=== PATIENT | female | born 1955 | race Caucasian/White ===

== ENCOUNTER 2023-02-12 10:20 | Emergency (ER) | payer BC ==
--- OUTSIDE RECORDS SUMMARY | 2023-02-12 10:23 | XMS REPORT | Continuity of Care Document ---
:1955 Author Organization [facility] t Address [address] [place] [address] [address] [place] [address] Care Team Providers Name Role Phone Luigi Lester MD Primary Care Physician JOSÉ MIGUEL_GCBZW_Saira Attending Clinician Unavailable Alonzo Darden MD Attending Clinician Nuno Brenner MD Attending Clinician Ashley Rivas APRN Attending Clinician Luigi Lester MD Attending Clinician Corey Richardson Attending Clinician Unavailable BRENDA LÓPEZ Attending Clinician Unavailable Lab, Adc Fam Pob I Attending Clinician Unavailable Nevaeh Prater Attending Clinician NEVAEH WILSON Attending Clinician Unavailable Martha Arana Attending Clinician MARTHA SPIVEY Attending Clinician Unavailable Doctor Unassigned, [address] Attending Clinician Unavailable JOSÉ MIGUEL_GCBZW_Saira Admitting Clinician Unavailable ALONZO DARDEN Admitting Clinician Unavailable Payers Payer Name Policy Type Policy Number Effective Date Expiration Date Morteza maya 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 3-16 st diffuse diffuse 00:00: Hospita goiter goiter 00 l without without thyrotoxic thyrotoxic crisis or crisis or storm storm Allergies, Adverse Reactions, Alerts Allergy Allergy Status Severity Reaction(s) Onset Inactive Treating Comm ents Source Name Type Date Date Clinician Michelle Gr Active Headache Meth serena ne ty to 3-01 st adverse 00:00: Hospita reaction 00 l s to drug NO KNOWN Drug Active [facility] ALLERGIE Class ity of S [facility] Family History Family Member Diagnosis Comments Start Date Stop Date Source Natural father Colon polyps [facility] Hy[facility] father Ulcerative colitis [facility] Social History Social Habit Start Date Stop Date Quantity Comments Source [facility] Exposure to Yes [facility] SARS-CoV-2 (event) [facility] Alcohol intake 2022-06-05 2022-06-05 Lifetime Zoroastrian 00:00:00 00:00:00 non-drinker Hospital (finding) History of Social 2022-06-05 2022-06-[address] function 00:00:00 00:00:00 Hospital Tobacco use and 2022-05-17 2022-05-17 Smokeless Zoroastrian exposure 00:00:00 00:00:00 tobacco non-user Hospital Sex Ass[birth year] At [birth year] Zoroastrian 00:00:00 00:00:00 Hospital Smoking Status Start Date Stop Date Source Unknown if ever smoked [facility] Never smoked tobacco [facility] Medications Ordered Filled Start Stop Current Ordering Indication Dosage Frequency Signature Comments Components Source Medication Medication Date Date Medication? Clinician (SIG) Name Name DULoxetine Yes 60mg Q.5D Take 1 Metho di (CYMBALTA) 3-[address] 60 MG 14:06: (60 mg Hospita capsule 44 total) by l mouth 2 (two) times a day. folic acid Yes 1mg QD Take 1 Metho di (FOLVITE) 1 3-29 tablet (1 st MG tablet 14:06: mg total) Hos judy 44 by mouth l daily. ARIPiprazol Yes 2mg QD Take 1 Meth serena e (ABILIFY) 3-29 tablet (2 st 2 MG tablet 14:06: mg total) H ospita 44 by mouth l daily. atorvastati 0 Yes 20mg QD Take 1 Meth serena n (LIPITOR) 3-29 tablet (20 st 20 mg 14:06: mg total) Hospita tablet 44 by mouth l daily. Default OP ins pantoprazol 0 Yes 40mg QD Take 1 Meth serena e 3-29 tablet (40 st (PROTONIX) 14:06: mg total) Ho spita 40 MG EC 44 by mouth l tablet daily. losartan 0 Yes 100mg QD Take 1 Method i (COZAAR) 3-[address] 100 MG 14:06: (100 mg Hospita tablet 44 total) by l mouth daily. naltrexone Yes Take by Meth serena HCl 3-[address] (NALTREXONE 14:06: 3.0mg for H ospita ORAL) 44 two weeks l then 4.5mg x 4 weeks doxycycline Yes 50mg Q.5D Take 1 Meth serena (VIBRAMYCIN -[address] ) 50 MG 14:06: (50 mg Hospita capsule 44 total) by l mouth 2 (two) times a day. levothyroxi 2022- No 137ug QD Take 1 Me thodi ne 06-06-[address] (SYNTHROID) 00:00: 04:59 (137 mcg H ospita 137 mcg 00 :00 total) by l tablet mouth daily for 30 days. traMADoL Yes 20495 50mg Q6H Take 1 Method i (ULTRAM) 50 -17 tablet (50 st mg tablet 00:00: mg total) Hos judy 00 by mouth l every 6 (six) hours as needed for moderate pain for up to 10 doses .acute pain. calcium 2022- No 1000mg Q6H Chew 2 Metho di carbonate 06-02 06-[address] (TUMS) 200 00:00: 04:59 (1,000 mg H ospita mg calcium 00 :00 total) l (500 mg) every 6 chewable (six) tablet hours for 90 days. calcitrioL 0 2022- No .25ug Q.5D Take 1 Met hodi (ROCALTROL) 06-02-[address] 0.25 MCG 00:00: 04:59 (0.25 mcg Hos judy capsule 00 :00 total) by l mouth 2 (two) times a day for 14 days. acetaminoph No 1000mg Q8H Take 2 M ethodi en (Tylenol 17 -[address] Extra 00:00: 04:59 (1,000 mg Hospit a Strength) 00 :00 total) by l 500 MG mouth tablet every 8 (eight) hours for 3 days. Following day 3, can use over-the-c ounter acetaminop hen as needed per label instructio ns. No more than 3-4 grams (4080-6547 mg) of acetaminop hen daily. methIMAzole No 10mg Q.5D Take 1 Met hodi (TAPAZOLE) 06-01 tablet (10 st 10 MG 15:26: 00:00 mg total) Hospit a tablet 35 :00 by mouth 2 l (two) times a day. Vital Signs Vital Name Observation Time Observation Value Comments Source Systolic blood 2022-06-14 19:05:00 134 mm[Hg] [facility] pressure Diastolic blood 2022-06-14 19:05:00 70 mm[Hg] [facility] pressure Heart rate 2022-06-14 19:05:00 113 /min [facility] Body temperature 2022-06-14 19:05:00 36.89 Leida [facility] Body height 2022-06-14 19:05:00 177.8 cm [facility] Body weight 2022-06-14 19:05:00 95.709 kg [facility] BMI 2022-06-14 19:05:00 30.28 kg/m2 [facility] Oxygen saturation in 2022-06-14 19:05:00 99 /min [facility] Arterial blood by Pulse oximetry Respiratory rate 2022-06-02 16:20:37 16 /min [facility] Procedures Procedure Date / Time Performing Clinician Source Performed PARATHYROID HORMONE 2022-06-02 09:29:[facility] 2022-06-02 09:29:00 Jean Pierre Baugh spital PARATHYROID HORMONE 2022-06-01 20:50:00 [facility] CALCIUM LEVEL 2022-06-01 20:50:00 [facility] AN ELECTIVE 2022-06-01 18:08:00 [facility] THYROIDECTOMY 2022-06-01 18:01:00 Katalina Alonzo [facility] spital SURGICAL PATHOLOGY 2022-06-01 13:10:00 KatalinaAlonzo jimenez [facility] REQUEST CBC WITH PLATELET AND 2022-05-17 19:35:00 Ashley Rivas [facility] DIFFERENTIAL COMPREHENSIVE METABOLIC 2022-05-17 19:35:00 Ashley Rivas [facility] PANEL HEMOGLOBIN A1C 2022-05-17 19:35:00 Evelyn[facility] ESTIMATED GFR 2022-05-17 19:35:00 Evelyn, Linden Toya [facility] ECG PRE/POST OP 2022-05-17 19:23:51 Evelyn, [facility] Plan of Care Planned Activity Planned Date Details Comments Source Future Scheduled 2023-01-10 Screening for [facility] Test 03:19:15 malignant neoplasm of colon (procedure) [code = 099128180] Future Scheduled 2023-01-10 Screening for [facility] Test 03:19:15 malignant neoplasm of colon (procedure) [code = 872784109] Future Scheduled 2023-01-10 Screening for [facility] Test 03:19:15 malignant neoplasm of colon (procedure) [code = 711708565] Future Scheduled 2023-01-[address] [facility] Test 03:19:15 (procedure) [code = 416468822] Future Scheduled 2023-01-10 BREAST CANCER [facility] Test 03:19:15 SCREENING [code = BREAST CANCER SCREENING] Future Scheduled 2023-01-10 Screening for [facility] Test 03:19:15 malignant neoplasm of colon (procedure) [code = 782770792] Future Scheduled 2023-01-10 Screening for [facility] Test 03:19:15 malignant neoplasm of colon (procedure) [code = 745549998] Future Scheduled 2023-01-10 SHINGLES VACCINES (1 Met [facility] Test 03:19:15 of 2) [code = SHINGLES VACCINES (1 of 2)] Future Scheduled 2023-01-10 65+ P[facility]UMOCOCCAL [facility] Test 03:19:15 VACCINE (2 - PCV) [code = 65+ PNEUMOCOCCAL VACCINE (2 - PCV)] Future Scheduled 2023-01-10 COVID-19 VACCINE (4 - [facility] Test 03:19:15 season) [code = COVID-19 VACCINE (4 - season)] Future Scheduled 2023-01-10 INFLUENZA VACCINE (#1) [facility] Test 03:19:15 [code = INFLUENZA VACCINE (#1)] Encounters Start End Encounter Admission Attending Care Care Encounter Source Date/Time Date/Time Type Type Clinicians Facility Department ID 2023-01-14 2023-01-14 Outpatient GC_GCBZW_Ka PRIV PRIV [id number] [facility] 00:00:00 00:00:00 ditracia_S [id number] Medic al 2022-06-14 2022-06-14 Office Katalina, 1.2.840.7 [id number] [facility] 14:00:00 15:41:56 Visit Helanderson S [address]37.1.[address] 3.430.2.7 Hospit a .3.945048 l .8 2022-06-14 2022-06-14 [id number] [place] 00:00:00 00:00:[address] HELMI [address] 2022-06-14 2022-06-14 Travel 1.2.840.1 1.2.896.010 [id number] [facility] 00:00:00 00:00:[address] 3.430.2.7 0.2.7.3.698 Ho spita .3.177829 084.8 l .8 2022-06-01 2022-06-02 [facility], 1.2.840.1 [id number] Method[facility] 09:30:00 14:01:00 Encounter Helanderson S [address]0562.1.[address] 3.430.2.7 Hospit a .3.100356 l .8 2022-06-01 2022-06-02 Outpatient KATALINA [facility] [id number] [place] 00:00:00 00:00:00 HELMI [address] 2022-06-01 2022-06-01 Surgery Katalina, 1.2.840.1 [id number] [facility] 14:35:00 18:55:00 Helmi S [address]14.[address] 3.430.2.7 Hospit a .3.917284 l .8 2022-06-01 2022-06-01 Anesthesia Mauricecheryl Nuno Hill 1.2.840.1 [id number] [facility] 13:01:00 15:37:00 Event Evelyn Ashley AnnettePatricia 57152.1.[address] 3.430.2.7 Hospit a .3.645788 l .8 2022-06-01 2022-06-01 Travel 1.2.840.1 1.2.666.165 [id number] [facility] 00:00:00 00:00:[address] 3.430.2.7 0.2.7.3.698 Ho spita .3.990575 084.8 l .8 2022-05-30 2022-05-30 Travel 1.2.840.1 1.2.534.060 [id number] [facility] 00:00:00 00:00:[address] 3.430.2.7 0.2.7.3.698 Ho spita .3.921367 084.8 l .8 2022-05-17 2022-05-17 Pre-Admiss Katalina, 1.2.840.1 [id number] Methodi 13:00:00 14:00:00 ion Helmi S [address]804.1.[address] Testing 3.430.2.7 Hospit a .3.115318 l .8 2022-05-17 2022-05-17 Office Katalina, 1.2.840.9 [id number] Method[facility] 09:30:00 11:03:25 Visit Helmi S [address]2379.1.[address] 3.430.2.7 Hospit a .3.261192 l .8 2022-05-17 2022-05-17 Travel 1.2.840.1 1.2.309.434 [id number] [facility] 00:00:00 00:00:[address] 3.430.2.7 0.2.7.3.698 Ho spita .3.802816 084.8 l .8 2022-05-17 2022-05-17 Outpatient KATALINA, [facility] [id number] [place] 00:00:00 00:00:[address] HELMI [address] 2022-05-17 2022-05-17 Outpatient KATALINA [facility] [id number] [place] 00:00:00 00:00:[address]MI [address] 2022-05-11 2022-05-11 Transcribe Tayler, 1.2.840.1 [id number] Methodi 00:00:00 00:00:00 Orders Luigi 65416.1.[address] 3.430.2.7 Hospit a .3.863445 l .8 2022-05-01 2022-05-01 Telephone Dylan, 1.2.840.2 [id number] Method[facility] 00:00:00 00:00:[address] 3.430.2.7 Hospit a .3.218244 l .8 2020-05-18 2020-05-18 Outpatient Keith LÓPEZ [facility] [id number] Univers 11:40:00 11:40:00 [facility] 2020-05-14 2020-05-14 Outpatient Keith LÓPEZ [facility] [id number] Univers 10:50:00 10:50:00 [facility] 2020-05-04 2020-05-04 Outpatient Keith LÓPEZ [facility] [id number] [facility] 10:50:00 10:50:00 [facility] 2020-04-13 2020-04-13 Outpatient R RENE, [facility] [id number] Univers 10:10:00 10:10:00 BRENDA saez [facility] 2020-03-29 2020-03-29 Laboratory Lab, [facility] Fam Pob I [facility] 1.2. 840.114 [id number] Univers 09:12:25 09:32:25 Only Nevaeh [facility] 350.1.13.10 [facility]y [facility] [place] 4.2.7.2.686 Nura as Professio [phone] [place] [address] Office [address] [facility] 2020-03-29 2020-03-29 Outpatient R SLY [facility] [id number] Univers 09:00:00 09:00:00 NEVAEH saez [facility] 2019-12-03 2019-12-03 Laboratory Lab, [facility] 1.2.840.114 [id number] 16:08:25 16:28:25 Only Fam Pob I Health 350.1.13.10 [place] 4.2.7.2.686 Professio [phone] nal [facility] Office [facility] 2019-12-03 2019-12-03 Laboratory Lab, [facility] Fam Pob I [facility] 1.2. 840.114 [id number] Univers 16:08:25 16:28:25 Only Allyssa Martha [facility] 350.1.13.10 ity [facility] [place] 4.2.7.2.686 Nura as Professio [phone] [place] dical nal [address] [place] [address] Office [address] [facility] 2019-12-03 2019-12-03 Outpatient R ALLYSSA [facility] [id number] Univers 16:00:00 16:00:00 MARTHA saez [facility] 2019-12-02 2019-12-02 Outpatient R SLY [facility] [id number] Univers 14:00:00 14:00:00 NEVAEH saez [facility] 2019-10-20 2019-10-20 Laboratory Lab, [facility] 1.2.840.114 [id number] 15:59:30 16:19:30 Only Fam Pob I Health 350.1.13.10 [place] 4.2.7.2.686 Professio [phone] nal [facility] Office Building [facility] 2019-10-20 2019-10-20 Laboratory Lab, Adc Fam Pob I [facility] 1.2. 840.114 [id number] Univers 15:59:30 16:19:30 Only Nevaeh Wilson 350.1.13.10 [facility]y of [place] 4.2.7.2.686 Nura as Professio [phone] [place] dical [address] Office Building [facility] 2019-10-20 2019-10-20 [facility] [id number] Univers 16:00:00 16:00:00 NEVAEH itcharito [facility] 2019-10-20 2019-10-20 [facility] [id number] Univers 15:40:00 15:40:00 NEVAEH saez [facility] 2019-10-20 2019-10-20 Letter Doctor BEAN 1.2.840.114 [id number] 00:00:00 00:00:00 (Out) Unassigned, CYNDEE 350.1.13.[address] [facility] [id number] [facility] 2019-10-20 2019-10-20 Letter Doctor GENEVA 1.2.840.114 [id number] Univers 00:00:00 00:00:00 (Out) Unassigned, CYNDEE 350.1.13.[address] [facility] 4.2.7.2.686 Nura as [phone] [address] Results Test Description Test Time Test Comments Results Result Comments Source Surgical pathology request 2022-06-08 22:19:29 Test Item Value Reference Range Interpretation Comme nts Case number (test code = [id number]) [id number] Surgical pathology report (test code = See link below for PDF Lab R eport 225) Result status (test code = 5505160) This is Final Report for [id number] [facility]2023-03-16 18:08:00Misa Amaya 06/01/2022 1:28 PMAirway Date/Time: 06/01/2022 1:08 PM Location: OR Performed by: WAITER/WAITRESS TAKE OUT/AAAnesthesiologist: Nuno Brenner MDResident/WAITER/WAITRESS TAKE OUT/AA: Misa AmayaAuthorized by: Nuno Brenner MDUrgency: ElectiveDifficult Airway: No Preoxygenated with 100% O2: Yes C-spine Precautions Maintained Throughout: Yes Mask Ventilation: Easy maskFinal Airway Type: Endotracheal airwayFinal Endotracheal Airway: ETT and NIM tubeCuffed: Yes Technique Used: Direct laryngoscopyDevices/Methods Used in Placement: Intubating styletInsertion Site: OralBlade Type: MillerLaryngoscope Blade/Videolaryngoscope Blade Size: 2ETT Size (mm): 7.0Cuff at minimum occlusion pressure: Yes Measured from: LipsETT to Lips (cm): 21Placement Verified by: CO2 detection Laryngoscopic view: Grade I - full view of glottisRapid Sequence Induction (RSI): No Modified RSI: No Number of Attempts at Approach: 1ECG Pre/Post [id number] 23:00:37 Test Item Value Reference Range Interpretation Comments Ventricular rate (test 85 code = 253) Atrial rate (test code = 85 255) NM interval (test code = 130 266) QRSD interval (test code 86 = 260) QT interval (test code = 368 264) QTC interval (test code 437 = 265) P axis 1 (test code = 56 267) QRS axis 1 (test code = 46 268) T wave axis (test code = 75 270) EKG impression (test Normal sinus code = 273) rhythm-Normal ECG-No previous ECGs available-Electronica lly Signed By Jason Howell MD ([id number]) on 05/17/2022 5:00:32 PM [facility]
[2023-02-12 11:14] LABS: Absolute Lymphocytes (CBC) 2.3 K/uL (0.7-4.9); Hematocrit 27.9 % (36.0-45.0); MCV 93.9 fL (80-100); MPV 8.2 fL (7.6-11.3); Platelets 269 thou/uL (152-406); RBC Red Blood Cell Count 2.97 M/uL (3.86-4.86)
[2023-02-12 11:42] LABS: Albumin 3.3 g/dL (3.4-5.0); Bilirubin Total 0.2 mg/dL (0.2-1.0); Potassium 4.2 mEq/L (3.5-5.1); Protein, Total 8.5 g/dL (6.4-8.2)
[2023-02-12 12:13] LABS: Blood Morphology Comment NOT SEEN (NOT SEEN); Platelet Estimate ADEQ
[2023-02-12] MEDS ORDERED: NA CHLORIDE 0.9% 1,000 ML ONE (12:30)
--- NOTE | 2023-02-12 13:03 | RAD REPORT ---
EXAM DESCRIPTION: CT - Chest For Pe Angio - 02/12/2023 12:18 pm CLINICAL HISTORY: HEMOPTYSIS COMPARISON: Thorax Wo Con dated 11/03/2022 TECHNIQUE: Thin axial CT images of the chest were obtained following administration of 100 mL Isovue 370 IV contrast. Multiplanar reconstructions, and maximum intensity projection reconstructions were generated and reviewed. Exam utilizes a protocol for optimal evaluation of pulmonary arterial tree. All CT scans are performed using dose optimization technique as appropriate and may include automated exposure control or mA/KV adjustment according to patient size. FINDINGS: Right and left pulmonary arteries are prominent in caliber. No emboli or other suspicious finding. No acute or significant aorta findings. No mass or infiltrate in the lung parenchyma. No pleural thickening or pleural effusion. No pneumotho rax. Small hiatal hernia. Central airways are patent without suspicious endobronchial lesions. No abnormal mediastinal or hilar masses or lymphadenopathy seen. No chest wall mass or abnormal axilliary lympha denopathy. IMPRESSION: No evidence of acute central pulmonary emboli. Prominent caliber of the right and left pulmonary arteries, suggesting pulmonary arterial hypertensio n in the appropriate clinical setting. Small hiatal hernia.
--- NOTE | 2023-02-12 13:50 | ER ---
Nurse's Notes [facility] Name: Oh Young Age: 67 yrs Sex: Female : 1955 Arrival Date: 02/12/2023 Time: 10:20 Bed 11 Private MD: Luigi Lester V Diagnosis: Hemoptysis Presentation: 02/12 10:36 Chief complaint: Patient states: "I've been coughing up phlegm that has blood in it for mb9 the past couple days. I feel like i'm wheezing as well." Pt denies SOB/CP. Coronavirus screen: Vaccine status: Patient reports receiving the 2nd dose of the covid vaccine. Ebola Screen: No symptoms or risks identified at this time. Initial Sepsis Screen: Does the patient meet any 2 criteria? No. Patient's initial sepsis screen is negative. Does the patient have a suspected source of infection? No. Patient's initial sepsis screen is negative. Risk Assessment: Do you want to hurt yourself or someone else? Patient reports no desire to harm self or others. Onset of symptoms was February 12, 2023. 10:36 Method Of Arrival: Ambulatory mb9 10:36 Acuity: ALICIA 3 mb9 Triage Assessment: 10:39 General: Appears in no apparent distress. Behavior is calm, cooperative. Pain: Denies mb9 pain. EENT: No deficits noted. Neuro: Palmer Agitation-Sedation Scale (RASS): 0 - Alert and Calm Level of Consciousness is awake, alert, obeys commands, Oriented to person, place, time, situation, Appropriate for age. Cardiovascular: Patient's skin is warm and dry. Respiratory: Reports cough that is. GI: Abdomen is round non-distended. : No signs and/or symptoms were reported regarding the genitourinary system. Derm: Skin is pink, warm \\T\\ dry. Musculoskeletal: Range of motion: intact in all extremities. Historical: - Allergies: 10:38 Zoloft; mb9 - PMHx: 10:38 raynaud's; Depressive disorder; mb9 - PSHx: 10:38 Thyroidectomy; mb9 - Immunization history:: Adult Immunizations up to date. - Social history:: Smoking status: Patient denies any tobacco usage or history of. - Family history:: not pertinent. Screenin:54 [facility] ED Fall Risk Assessment (Adult) History of falling in the last 3 months, me1 including since admission No falls in past 3 months (0 pts) Confusion or Disorientation No (0 pts) Intoxicated or Sedated No (0 pts) Impaired Gait No (0 pts) Mobility Assist Device Used No (0 pt) Altered Elimination No (0 pt) Score/Fall Risk Level 0 - 2 = Low Risk. Abuse screen: Denies threats or abuse. Nutritional screening: No deficits noted. Tuberculosis screening: No symptoms or risk factors identified. Assessment: 12:54 Reassessment: No changes from previously documented assessment. me1 Vital Signs: 10:36 BP 173 / 94; Pulse 90; Resp 18; Temp 98; Pulse Ox 100% ; Weight 117.93 kg; Height 5 ft. mb9 11 in. ; 13:03 BP 171 / 90; Pulse 82; Resp 18; Pulse Ox 99% on R/A; me1 15:55 BP 178 / 87; Pulse 86; Resp 18; Pulse Ox 98% on R/A; me1 10:36 Body Mass Index 36.26 (117.93 kg, 180.34 cm) mb9 ED Course: 10:22 Patient arrived in ED. mr 10:23 Luigi Lester MD is Private Physician. mr 10:28 Raz Li MD is Attending Physician. rt 10:37 Triage completed. mb9 10:39 Arm band placed on. mb9 12:20 CT Chest For PE Angio In Process Unspecified. EDMS 12:24 Cindy Allen, RN is Primary Nurse. me1 12:54 Patient has correct armband on for positive identification. Bed in low position. Call me1 light in reach. Side rails up X 1. Provided Education on: POC. Verbalized understanding. . 12:54 No provider procedures requiring assistance completed. Patient did not have IV access me1 during this emergency room visit. 15:55 IV discontinued, intact, bleeding controlled, No redness/swelling at site. Pressure me1 dressing applied. Administered Medications: 12:25 Drug: NS 0.9% IV 1000 ml IV at 1 bolus Per protocol; 1000 mL bolus Route: IV; Rate: 1 me1 bolus; Site: right antecubital; 14:16 Follow up: Response: No adverse reaction; IV Status: Completed infusion me1 14:16 Drug: AZITHromycin IVPB 500 mg IVPB once over 1 hrs; (mix in 250 mL NS) Route: IVPB; me1 Infused Over: 1 hrs; Site: right forearm; 15:51 Follow up: Response: No adverse reaction; IV Status: Completed infusion me1 14:16 Drug: predniSONE PO 40 mg PO once Route: PO; me1 15:51 Follow up: Response: No adverse reaction me1 Medication: 12:54 VIS not applicable for this client. me1 Outcome: 13:49 Discharge ordered by . rt 15:56 Discharged to home ambulatory, with significant other, me1 15:56 Condition: stable 15:56 Discharge instructions given to patient, family, Instructed on discharge instructions, follow up and referral plans. medication usage, Demonstrated understanding of instructions, follow-up care, medications, Prescriptions given X 3, 15:56 Patient left the ED. me1 Signatures: Dispatcher [employer] EDQueta Lujan, Jacob James mr Leiva, Queta Valdes RN RN mb9 Raz Li MD MD rt Cindy Allen RN RN me1
--- NOTE | 2023-02-12 13:50 | EDPHYS ---
Physician Documentation [facility] Name: Oh Young Age: 67 yrs Sex: Female : 1955 Arrival Date: 02/12/2023 Time: 10:20 Bed 11 Private MD: Luigi Lester V ED Physician Raz Li HPI: 02/12 10:45 This 67 yrs old Female presents to ER via Ambulatory with complaints of Coughing up rt blood. 10:45 Patient presents to the ED with hemoptysis. She states that since about Sunday or rt last week she had a cough, started having hemoptysis on Sunday. Denies any difficulty breathing, reports subjective fever but she has been taking Tylenol. Denies any chest pain or shortness of breath. Denies other acute complaints, symptoms are moderate in severity, no other aggravating or alleviating factors.. Historical: - Allergies: 10:38 Zoloft; mb9 - PMHx: 10:38 raynaud's; Depressive disorder; mb9 - PSHx: 10:38 Thyroidectomy; mb9 - Immunization history:: Adult Immunizations up to date. - Social history:: Smoking status: Patient denies any tobacco usage or history of. - Family history:: not pertinent. ROS: 10:45 Cardiovascular: Negative for chest pain, palpitations, and edema, Abdomen/GI: Negative rt for abdominal pain, nausea, vomiting, diarrhea, and constipation, MS/Extremity: Negative for injury and deformity, Skin: Negative for injury, rash, and discoloration, Neuro: Negative for headache, weakness, numbness, tingling, and seizure, Psych: Negative for depression, anxiety, suicide ideation, homicidal ideation, and hallucinations, 10:45 Constitutional: Positive for Subjective fever, negative for body aches, 10:45 Respiratory: Positive for Hemoptysis, cough, negative for shortness of breath, Exam: 10:45 Constitutional: This is a well developed, well nourished patient who is awake, alert, rt and in no acute distress. Head/Face: Normocephalic, atraumatic. Chest/axilla: Normal chest wall appearance and motion. Nontender with no deformity. No lesions are appreciated. Cardiovascular: Regular rate and rhythm with a normal S1 and S2. No gallops, murmurs, or rubs. Normal PMI, no JVD. No pulse deficits. Respiratory: Lungs have equal breath sounds bilaterally, clear to auscultation and percussion. No rales, rhonchi or wheezes noted. No increased work of breathing, no retractions or nasal flaring. Abdomen/GI: Soft, non-tender, with normal bowel sounds. No distension or tympany. No guarding or rebound. No evidence of tenderness throughout. Skin: Warm, dry with normal turgor. Normal color with no rashes, no lesions, and no evidence of cellulitis. MS/ Extremity: Pulses equal, no cyanosis. Neurovascular intact. Full, normal range of motion. Neuro: Awake and alert, GCS 15, oriented to person, place, time, and situation. Cranial nerves II-XII grossly intact. Motor strength 5/5 in all extremities. Sensory grossly intact. Cerebellar exam normal. Normal gait. Psych: Awake, alert, with orientation to person, place and time. Behavior, mood, and affect are within normal limits. Vital Signs: 10:36 BP 173 / 94; Pulse 90; Resp 18; Temp 98; Pulse Ox 100% ; Weight 117.93 kg; Height 5 ft. mb9 11 in. ; 13:03 BP 171 / 90; Pulse 82; Resp 18; Pulse Ox 99% on R/A; me1 15:55 BP 178 / 87; Pulse 86; Resp 18; Pulse Ox 98% on R/A; me1 10:36 Body Mass Index 36.26 (117.93 kg, 180.34 cm) mb9 MDM: 10:37 Patient medically screened. rt 21:42 Differential Diagnosis Bronchitis, pneumo thorax, pneumonia, pulmonary embolism. Data rt reviewed: vital signs, nurses notes, lab test result(s), EKG, radiologic studies. I considered the following discharge prescriptions or medication management in the emergency department Medications were administered in the Emergency Department. See MAR. Independent interpretation of the following test(s) in the Emergency Department CT Scan: My interpretation is No pneumonia seen on interpretation of CT scan images. Care significantly affected by the following chronic conditions: Myasthenia gravis. Counseling: I had a detailed discussion with the patient and/or guardian regarding the historical points, exam findings, and any diagnostic results supporting the discharge/admit diagnosis, lab results, radiology results, the need for outpatient follow up, to return to the emergency department if symptoms worsen or persist or if there are any questions or concerns that arise at home. 02/12 10:38 Order name: CBC with Diff; Complete Time: 12:21 rt 02/12 10:38 Order name: CMP; Complete Time: 11:43 rt 02/12 11:53 Order name: Manual Differential; Complete Time: 12:21 EDMS 02/12 10:38 Order name: CT Chest For PE Angio; Complete Time: 13:05 rt 02/12 13:44 Order name: Misc. Order: dc after meds; Complete Time: 15:51 rt Administered Medications: 12:25 Drug: NS 0.9% IV 1000 ml IV at 1 bolus Per protocol; 1000 mL bolus Route: IV; Rate: 1 me1 bolus; Site: right antecubital; 14:16 Follow up: Response: No adverse reaction; IV Status: Completed infusion me1 14:16 Drug: AZITHromycin IVPB 500 mg IVPB once over 1 hrs; (mix in 250 mL NS) Route: IVPB; me1 Infused Over: 1 hrs; Site: right forearm; 15:51 Follow up: Response: No adverse reaction; IV Status: Completed infusion me1 14:16 Drug: predniSONE PO 40 mg PO once Route: PO; me1 15:51 Follow up: Response: No adverse reaction me1 Disposition Summary: 02/12/23 13:49 Discharge Ordered Notes: Location: Home rt Problem: new rt Symptoms: have improved rt Condition: Stable rt Diagnosis - Hemoptysis rt Followup: rt - With: Private Physician - When: 2 - 3 days - Reason: Discharge Instructions: - Discharge Summary Sheet rt - Hemoptysis rt Forms: - Medication Reconciliation Form rt - Thank You Letter rt - Antibiotic Education rt - Prescription Opioid Use rt - Patient Portal Instructions rt - Leadership Thank You Letter rt Prescriptions: - albuterol sulfate 90 mcg/actuation Inhalation HFA Aerosol Inhaler - inhale 2 inhalation INHALATION route every 3 to 4 hours as needed for rt bronchospasm; 2 Each; Refills: 0, Product Selection Permitted - azithromycin 250 mg Oral tablet - take 1 tablet ORAL route daily for 4 days start on day 2 of therapy; 4 tablet; rt Refills: 0, Product Selection Permitted - Prednisone 20 mg Oral tablet - take 2 tablets ORAL route once daily for 4 days; 8 tablet; Refills: 0, Product rt Selection Permitted Signatures: Dispatcher [employer] Queta Sharma RN RN mb9 Raz Li MD MD rt Cindy Allen RN RN me1
[2023-02-12] MEDS ORDERED: NA CHLORIDE 0.9% 250 ML ONE (14:21)
[2023-02-12] MEDS ORDERED: AZITHROMYCIN 500 MG INJ IVPB ONE (14:21)
[2023-02-12] MEDS ORDERED: predniSONE 20 MG TAB ONE (14:21)
[2023-02-12 16:19] VITALS: TEMP 98
[2023-02-12 16:22] VITALS: BP 178/87; O2SAT 98
== END 2023-02-12 15:56 | disposition home or self-care (01) ==
LOC: ER 10:20
DX: R04.2 Hemoptysis (principal)
CPT/HCPCS: 96365; 96361; 85025; 36415; 80053; 71275; 99284; 96366; Q9967; J7512; J7050; J7030

== ENCOUNTER 2024-04-02 20:43 | Emergency (ER) | payer BC, SELFPAY ==
--- NOTE | 2024-04-02 21:28 | RAD REPORT ---
EXAM: Chest Single View HISTORY: CHEST PAIN COMPARISON: 06/05/2017 FINDINGS: LUNGS/PLEURA: The lungs are clear. No pleural effusions or pneumothorax. No pulmonary edema. MEDIASTINUM: Accentuated by low lung volumes and portable technique. CARDIAC: Accentuated by low lung volumes and portable technique. UPPER ABDOMEN: No significant abnormality. BONES: No acute abnormality. LINES/TUBES/OTHER: N/A IMPRESSION: Low lung volumes without definite evidence of acute cardiopulmonary disease. .
[2024-04-02] MEDS ORDERED: ONDANSETRON 4 MG/2 ML VIAL ONE (21:57)
[2024-04-02] MEDS ORDERED: NA CHLORIDE 0.9% 100 ML ONE (21:57)
[2024-04-02] MEDS ORDERED: CEFEPIME 2 GM VIAL ONE (21:57)
[2024-04-02] MEDS ORDERED: ACETAMINOPHEN 500 MG TAB ONE (21:57)
[2024-04-02 22:00] LABS: Absolute Lymphocytes (CBC) 0.7 K/uL (0.7-4.9); Absolute Monocytes 0.3 K/uL (0.1-1.3); Absolute Neutrophil 9.2 K/uL (1.8-8.0); Basophils % 0.2 % (0-1.3); Hematocrit 30.4 % (36.0-45.0); Hemoglobin 10.1 g/dL (12.0-15.0); Lymphocytes % 6.9 % (15.3-44.8); MCH 32.2 pg (27.0-35.0); MCHC 33.2 g/dL (32.0-36.0); MCV 97.1 fL (80-100); MPV 7.5 fL (7.6-11.3); Monocytes % 2.8 % (3.3-12.3); Neutrophils % 90.1 % (41.7-73.7); Nucleated Red Blood Cells % 0.2 % (0-0); Platelets 228 thou/uL (152-406); RBC Red Blood Cell Count 3.13 M/uL (3.86-4.86); Red Cell Distribution Width 21.7 % (12.1-15.2)
[2024-04-02] MEDS ORDERED: VANCOMYCIN 1 GM/VIAL ONE (22:00)
[2024-04-02] MEDS ORDERED: NA CHLORIDE 0.9% 500 ML ONE (22:00)
[2024-04-02 22:01] LABS: PT Prothrombin Time 12.2 SECONDS (9.4-12.5); PTT, Activated Partial Thromb 26.9 SECONDS (24.3-36.9); Protime INR 1.16
[2024-04-02] MEDS ORDERED: NA CHLORIDE 0.9% 4,000 ML ONE (22:02)
[2024-04-02 22:10] LABS: SARS-CoV-2 Antigen CONTROL BLUE LINE VIS/BG OK; SARS-CoV-2 Antigen Rapid Res Negative (Negative)
[2024-04-02 22:16] LABS: Albumin 2.6 g/dL (3.4-5.0); Albumin/Globulin Ratio 0.5 (1.1-1.8); Anion Gap 13.9 mEq/L (5.0-15.0); Bilirubin Total 0.6 mg/dL (0.2-1.0); Globulin 4.8 g/dL (2.3-3.5); Potassium 4.9 mEq/L (3.5-5.1); Protein, Total 7.4 g/dL (6.4-8.2)
[2024-04-02 22:20] LABS: Thyroid Stimulating Hormone 10.4 uIU/mL (0.358-3.740)
[2024-04-02 22:21] LABS: Troponin High Sensitivity 75.8 pg/mL (<58.9)
[2024-04-02 22:51] LABS: Blood Gas Oxyhemoglobin 87.7 % (94-97)
[2024-04-02 22:52] LABS: Arterial Blood Carboxyhemoglob 1.6 % (0-1.5)
--- NOTE | 2024-04-02 23:06 | RAD REPORT ---
EXAMINATION: CT HEAD WITHOUT CONTRAST CLINICAL INDICATION: Female, 68 years old.dizzy TECHNIQUE: Axial CT images from the skull base to the vertex without intravenous contrast. Coronal an d sagittal reformatted images were created from the data set. One or more of the following dose reduction techniques were used: Automated exposure control, adjustment of the mA and/or kV according to patient size, and/or iterative reconstruction. Unless otherwise specified, incidental findings do not require dedicated imaging follow-up. [id number]. COMPARISON: 07/06/2010 FINDINGS: INTRACRANIAL: No acute intracranial hemorrhage. No hydrocephalus. No mass effect or midline shift. Mi ld chronic small vessel ischemic changes.Age advanced cerebral atrophy. VASCULATURE: No visualized abnormalities in the arteries or dural venous sinuses. SCALP/SKULL: No significant soft tissue or osseous abnormalities. SINUSES: The visualized paranasal sinuses and mastoid air cells are predominantly clear. IMPRESSION: No acute intracranial abnormality.
--- NOTE | 2024-04-02 23:13 | RAD REPORT ---
EXAM: CT CHEST, ABDOMEN AND PELVIS WITHOUT CONTRAST CLINICAL INDICATION: Female, 68 years old pneumonia TECHNIQUE: CT chest, abdomen and pelvis was performed, without IV contrast, as per department protoco l. Axial, sagittal and coronal reconstructions were obtained. One or more of the following dose reduction techniques were used: Automated exposure control, adjustment of the mA and/or kV according to the patient size, and/or iterative reconstruction. Unless otherwise specified, incidental findings do not require dedicated imaging follow-up. [id number]. COMPARISON: 02/12/[address] FINDINGS: The lack of intravenous contrast limits the sensitivity of this exam for evaluation of solid visceral organs, vascular structures, and retroperitoneum. Chest: LOWER NECK: No thyroid visualized, either atrophic or absent. LUNGS AND AIRWAYS: Limited by motion.No consolidative airspace disease. Likely some dependent atelect asis. Mild edema difficult to exclude. PLEURA: Small bilateral pleural effusions. MEDIASTINUM AND LYMPH NODES: No mediastinal mass or fluid collection. Normal size mediastinal, hilar, and axillary lymph nodes. THORACIC AORTA: No thoracic aortic aneurysm. PULMONARY ARTERIES: Enlarged main pulmonary arteries could indicate pulmonary artery hypertension. HEART: Mild cardiomegaly. Mitral annular calcifications.Trace pericardial effusion. Abdomen/Pelvis UPPER GI: No significant abnormality. LIVER: No significant focal abnormality. GALLBLADDER/BILE DUCTS: No biliary ductal dilatation.? PANCREAS: No mass, ductal dilation, or laly-pancreatic fluid. SPLEEN: Unremarkable. ADRENALS: No adrenal masses. KIDNEYS AND URETERS: No hydronephrosis.No renal or ureteral calculi.Contour bulge along the interpola r aspect of the right kidney could represent a renal lesion though not well assessed without IV contrast. ABDOMINAL AORTA AND OTHER VESSELS: Mild atherosclerotic changes. Ectatic abdominal aorta. PERITONEUM: No abnormal free fluid. No free air. LYMPH NODES: No pathologic lymphadenopathy. ABDOMINAL WALL: Ventral abdominal wall laxity SMALL BOWEL/COLON: Small bowel has normal course and caliber. No colonic wall thickening or pericolon ic inflammatory changes.Normal appendix. URINARY BLADDER: Underdistended but grossly unremarkable. REPRODUCTIVE ORGANS: Uterus surgically absent. No adnexal abnormality. MUSCULOSKELETAL: Compression fractures present at T7, T9, and L4 that are favored subacute or chronic . The T7 and T9 compression fractures have up to 60% loss of height. The L4 compression fracture has less than 20% loss of height. ADDITIONAL FINDINGS: None. IMPRESSION: 1. Motion limited evaluation of the chest with small effusions and possible mild pulmonary edema. Pne umonia considered less likely. 2. Age-indeterminate T7, T9, and L4 compression fractures. Suspect subacute or chronic. 3. Possible interpolar right renal lesion which is not well assessed without contrast. Consider nonem ergent renal ultrasound for further evaluation.
[2024-04-03 00:18] LABS: Band Neutrophils 12 % (0-1); Differential Total Cells Count 100; Lymphocytes 11 % (15-42); Monocytes 0 % (0-10); Reactive Lymphocytes 1 %; Segmented Neutrophils 76 % (40-80)
[2024-04-03 00:19] LABS: Anisocytosis 1+; Blood Morphology Comment NOTED (NOT SEEN); Macrocytosis SLIGHT; Platelet Estimate ADEQ
[2024-04-03 00:40] LABS: Specific Gravity 1.019 (1.005-1.030); Sqamous Epithelial <5 /HPF (None Seen); Urine Bacteria <20 /HPF (<20); Urine Bilirubin NEGATIVE (Negative); Urine Blood 2+ (Negative); Urine Clarity Extremely Turbid (Clear); Urine Color Yellow (Yellow); Urine Culture Reflex Order REFLEXED; Urine Glucose NEGATIVE (Negative); Urine Ketones NEGATIVE (Negative); Urine Microscopic Reflex YN ORDER UMIC; Urine Nitrite 2+ (Negative); Urine Protein 2+ (Negative); Urine Urobilinogen Normal (Normal); Urine WBC >50 /HPF (<5); Urine WBC Clump Occasional /HPF (None Seen)
[2024-04-03] MEDS ORDERED: METOCLOPRAMIDE 10 MG/2mL INJ ONE (00:40)
[2024-04-03] MEDS ORDERED: MORPHINE 4 MG/ML SYR ONE (00:41)
[2024-04-03 00:53] LABS: Arterial Blood Carboxyhemoglob 1.4 % (0-1.5); Blood Gas Oxyhemoglobin 83.9 % (94-97); Blood Gas THB 9.1 g/dl (12-18); Blood O2 Saturation 86.9 % (92-98.5)
--- NOTE | 2024-04-03 02:20 | ER ---
Nurse's Notes [facility] Name: Oh Young Age: 68 yrs Sex: Female : 1955 Arrival Date: 04/02/2024 Time: 20:43 Bed 8 Private MD: Diagnosis: Severe sepsis without septic shock;Pyelonephritis acute;Acute respiratory failure with hypoxia;NSTEMI , Acute Encephalopathy, Acute Hypoactive Delirium Presentation: 04/02 21:02 Chief complaint: EMS states: TONED OUT FOR C/O BODY ACHES, ADN FEVER. EMS REPORTS PT dd2 HAS BEEN SITTING IN RECLINER FOR 2 DAYS. Coronavirus screen: congestion, cough unrelated to allergies, fever, muscle pain. Ebola Screen: No symptoms or risks identified at this time. Initial Sepsis Screen: Does the patient meet any 2 criteria? RR > 20 per min. HR > 90 bpm. Yes Does the patient have a suspected source of infection? No. Patient's initial sepsis screen is negative. If YES to both, name of provider notified: Mehul Desai MD Risk Assessment: Do you want to hurt yourself or someone else? Patient reports no desire to harm self or others. Onset of symptoms is unknown. Care prior to arrival: Medication(s) given: Glucose check: 118. 21:02 Method Of Arrival: EMS: [facility] dd2 21:02 Acuity: ALICIA 3 dd2 Triage Assessment: 21:10 General: Appears uncomfortable, obese, unkempt, Behavior is calm, cooperative, dd2 appropriate for age, Smells of URINE. Pain: Complains of pain in GENERALIZED BODY Pain currently is 6 out of 10 on a pain scale. EENT: Reports nasal congestion. Neuro: Level of Consciousness is obeys commands, SLEEPY BUT AROUSES TO ANSWER QUESTIONS. Oriented to person, place, time, situation, Appropriate for age. Cardiovascular: Denies chest pain, Heart tones S1 S2 present Patient's skin is warm and dry. Respiratory: Reports shortness of breath at rest on exertion cough that is non-productive, persistent Airway is patent Respiratory effort is even, with retractions, INCREASED WORK OF BREATHING Respiratory pattern is regular, tachypnea Breath sounds with crackles bilaterally. Breath sounds with rhonchi bilaterally. Onset: The symptoms/episode began/occurred at an unknown time. the patient has mild shortness of breath. GI: Abdomen is distended, obese, Bowel sounds present X 4 quads. Abd is non tender X 4 quads. : STRONG URINE ODOR. Musculoskeletal: Circulation, motion, and sensation intact. Range of motion: limited in BLE. Historical: - Allergies: 21:10 Zoloft; dd2 - PMHx: 21:10 depressive disorder; raynaud's; dd2 - PSHx: 21:10 Thyroidectomy; dd2 - Immunization history:: Adult Immunizations unknown. - Infectious Disease History:: Denies. - Social history:: Smoking status: Patient denies any tobacco usage or history of. - Family history:: not pertinent. Screenin:30 [facility] ED Fall Risk Assessment (Adult) History of falling in the last 3 months, dd2 including since admission No falls in past 3 months (0 pts) Confusion or Disorientation No (0 pts) Intoxicated or Sedated No (0 pts) Impaired Gait Yes (1 pt) Mobility Assist Device Used Yes (1 pt) Altered Elimination Yes (1 pt) Score/Fall Risk Level 3 or more points = High Risk Oriented to surroundings, Maintained a safe environment, Educated pt \T\ family on fall prevention, incl call for assistance when getting out of bed, Assessed \T\ reinforced patient's understanding of fall precautions, Hourly rounding (assess needs \T\ fall precautionary measures) done. Abuse screen: Denies threats or abuse. Nutritional screening: No deficits noted. Tuberculosis screening: No symptoms or risk factors identified. 04/03 03:09 Kimberly Swallow Protocol Exclusion Criteria: Unable to remain alert for testing: Yes Brief dd2 Cognitive Screen What is your name? Normal, Where are you right now? Normal, What year is it? Normal. Oral Mechanism Examination Facial Symmetry: Abnormal Motion: Abnormal Lip Closure: Abnormal MD Notified: Mehul Desai MD. Assessment: 04/02 21:15 Reassessment: SEE TRIAGE ASSESSMENT FOR FULL ASSESSMENT. dd2 04/03 00:25 : Urine is cloudy, PROLAPSE NOTED. dd2 02:29 Cardiovascular: Rhythm is sinus tachycardia. dd2 03:07 Reassessment: ATTEMPTED PO CHALLENGE FOR A SECOND TME. PT IS NOT ABLE TO STAY AWAKE, dd2 COUGH ON DEMAND OR FOLLOW COMMANDS FOR PO CHALLENGE/SWALLOW EVAL. DR. DESAI NOTIFIED THAT PT FAILED PO CHALLENGE AGAIN. PO MEDICATION CHANGED TO RECTAL. 03:54 Reassessment: Pt difficult to arouse. Will state name after physical stimulation. MD at dd2 bedside. Respiratory called to place pt back on CPAP. 04:23 Reassessment: PT NOT AROUSING TO VERBAL STIMULATION, AT BEDSIDE. dd2 06:39 Reassessment: ATTEMPTED TO CALL REPORT TO ICU [facility]. WAS REQUESTED TO CALL BACK IN dd2 10 MINS. 07:01 Reassessment: REPORT CALLED TO [facility] ICU [facility]. dd2 07:20 General: Propofol infusion continue upon transfer. Additional bottle pulled for cm10 transfer.. Vital Signs: 04/02 21:02 BP 135 / 56; Pulse 120; Resp 34; Temp 99.4(O); Pulse Ox 97% on R/A; Weight 118 kg; dd2 22:14 BP 124 / 73; Pulse 128; Resp 31; Pulse Ox 99% on 5 lpm NC; dd2 22:30 BP 103 / 57; Pulse 129; Resp 26; Pulse Ox 100% on CPAP; dd2 23:28 BP 121 / 65; Pulse 127; Resp 23; Pulse Ox 100% on CPAP; dd2 04/03 00:09 BP 159 / 76; Pulse 126; Resp 24; Temp 98.5(TE); Pulse Ox 91% on 4 lpm NC; dd2 00:30 BP 149 / 75; Pulse 128; Resp 23; Pulse Ox 91% on 4 lpm NC; dd2 01:00 BP 131 / 65; Pulse 117; Resp 20; Pulse Ox 95% on 4 lpm NC; dd2 01:30 BP 147 / 82; Pulse 123; Resp 22; Pulse Ox 94% on 4 lpm NC; dd2 02:00 BP 139 / 63; Pulse 126; Resp 22; Pulse Ox 96% on 4 lpm NC; dd2 02:40 BP 136 / 69; Pulse 117; Resp 21; Temp 100.4(O); Pulse Ox 93% on 4 lpm NC; dd2 03:00 BP 132 / 62; Pulse 115; Resp 23; Temp 99.7(O); Pulse Ox 92% on 4 lpm NC; dd2 03:30 BP 123 / 56; Pulse 109; Resp 22; Pulse Ox 93% on 4 lpm NC; dd2 04:00 BP 139 / 70; Pulse 106; Resp 24; Temp 99.2(O); Pulse Ox 97% on CPAP; dd2 04:30 BP 149 / 70; Pulse 102; Resp 24; Pulse Ox 97% on CPAP; dd2 05:00 BP 144 / 81; Pulse 107; Resp 24; Pulse Ox 96% on CPAP; dd2 05:30 BP 146 / 75; Pulse 117; Resp 16 A; Pulse Ox 95% on ETT vent; FiO2 50 %; dd2 06:00 BP 174 / 93; Pulse 117; Resp 16 A; Pulse Ox 95% on ETT vent; FiO2 50 %; dd2 06:30 BP 112 / 62; Pulse 105; Resp 16 A; Pulse Ox 95% on ETT vent; FiO2 50 %; dd2 [place] Coma Score: 04:39 Eye Response: to voice(3). Motor Response: obeys commands(6). Verbal Response: sp4 confused(4). Total: 13. ED Course: 04/02 20:45 Patient arrived in ED. jj6 20:47 Cornel Aguilar, RN is Primary Nurse. bm8 20:47 Mehul Desai MD is Attending Physician. sp4 21:10 Triage completed. dd2 21:10 Arm band placed on right wrist. Patient placed in an exam room, on a stretcher, on dd2 oxygen, on pulse oximetry. 21:17 Chest Single View XRAY In Process Unspecified. EDMS 21:30 Patient has correct armband on for positive identification. Placed in gown. Bed in low dd2 position. Call light in reach. Side rails up X2. Client placed on continuous cardiac and pulse oximetry monitoring. NIBP monitoring applied. potline monitor on. 21:30 No provider procedures requiring assistance completed. dd2 21:33 Initial lab(s) drawn, by ED staff, sent to lab. First set of blood cultures drawn by ED dd2 staff. Inserted saline lock: 22 gauge in left antecubital area, using aseptic technique. Blood collected. Flushed with 10 mL NS. Oxygen administration via nasal cannula \T\ 2L/min. 22:52 CT Head Brain wo Cont In Process Unspecified. EDMS 22:55 CT Chest Abdomen Pelvis W/O Contrast In Process Unspecified. EDMS 04/03 00:25 Castro cath inserted, using sterile technique, 16 Fr., by ED staff, balloon inflated, to dd2 gravity drainage, other PLACED BY DR. DESAI. 02:18 Luigi Lester MD is Hospitalizing Provider. sp4 03:09 Notified ED physician of other FAILED PO CHALLENGE AND SWALLOW SCREEN. dd2 04:00 Initiated transfer with Caitlin at [facility]. rv1 04:44 doc to doc with cat hooker at [facility]. rv1 04:[address] Johnson to [facility] ICU 2112. Report # [phone]. rv1 Dr. Johnson requested that the pt be intubated before transferring. 05:22 Assisted provider with intubation using 8.0 mm ETT via oral route. ET tube secured at dd2 28cm at the lips. Set up intubation tray. Intubated by Mehul Desai MD Placement verified by CO2 detector w/ + color change, auscultating bilateral breath sounds, Patient tolerated well. 06:19 Chest Single View In Process Unspecified. EDMS 06:40 Assisted provider with central line placement. Set up central line tray. Triple lumen dd2 line placed in right internal jugular. Line placed by Mehul Desai MD Placement verified by CXR, blood return, Dressed with Tegaderm, Patient tolerated well. Before procedure, did Practitioner(s) obtain informed consent? Yes. Patient \T\ family education about procedure, CLABSI prevention and S/S of infection? Yes. Time-out/Briefing performed prior to start of procedure? Yes. Was handwashing/sanitizing done immediately prior to procedure? Yes. Was patient positioned to in a way to prevent air embolism? Yes. Was procedure site sterilized? Yes, with chlorhexidine. Was the site allowed to dry? Was local anesthetic and/or sedation utilized? Yes. During the procedure, did the Practitioner(s) maintain a sterile field? Yes. Were unused ports clamped during insertion? Yes. Was a 2nd qualified MD obtained after 3 unsuccessful insertion attempts? No. Was blood aspirated from each lumen? Yes. After the procedure, did the Practitioner(s) clean the site and apply a sterile dressing? Yes. OROGASTRIC TUBE PLACED AND CONFIRMED BY CXR. Suctioned orally - small amount thick clear sputum. Placed Assist ventilation with ventilator. 07:13 Patient transferred, IV remains in place. dd2 Administered Medications: 04/02 22:27 Drug: Ondansetron IVP 4 mg IVP once; over 2 minutes Route: IVP; Site: left antecubital; dd2 22:42 Follow up: Response: No adverse reaction dd2 22:28 Drug: Acetaminophen PO 1000 mg PO once Route: PO; dd2 22:58 Follow up: Response: No adverse reaction dd2 22:28 Drug: NS 0.9% IV (30 ml/kg) 30 ml/kg IV at bolus once; Sepsis Protocol; to be given as dd2 a bolus over 90 minutes Route: IV; Rate: bolus; Site: left antecubital; 23:58 Follow up: IV Status: Completed infusion; IV Intake: 3540ml dd2 22:28 Drug: Cefepime IVPB 2 grams IVPB at 200 ml/hr once over 30 mins; (mix in NS 100 mL) dd2 Route: IVPB; Rate: 200 ml/hr; Infused Over: 30 mins; Site: left antecubital; 22:58 Follow up: Response: No adverse reaction; IV Status: Completed infusion; IV Intake: dd2 100ml 23:38 Drug: vancoMYCIN IVPB 2 grams IVPB at calculated rate once Route: IVPB; Rate: dd2 calculated rate; Site: left antecubital; 23:53 Follow up: Response: No adverse reaction dd2 04/03 01:39 Follow up: IV Status: Completed infusion; IV Intake: 500ml dd2 00:40 Drug: morphine IVP or IV 4 mg IVP once over 4 mins Route: IVP; Infused Over: 4 mins; dd2 Site: left antecubital; 00:55 Follow up: Response: No adverse reaction dd2 00:40 Drug: metoCLOPramide IVP 10 mg IVP once; over 1 to 2 minutes Route: IVP; Site: left dd2 antecubital; 00:55 Follow up: Response: No adverse reaction dd2 02:59 Drug: Acetaminophen W[place] Suppository 650 mg W[place] once Route: W[place]; dd2 03:29 Follow up: Response: No adverse reaction dd2 03:00 Drug: Albumin IVPB 25 grams 100 ml IVPB once; (Note: Albumin 25% concentration) Volume: dd2 100 ml; Route: IVPB; Site: left antecubital; 03:15 Follow up: Response: No adverse reaction dd2 03:29 Follow up: Response: No adverse reaction; IV Status: Completed infusion; IV Intake: dd2 100ml 03:00 Drug: Solu-CORTEF IVP 100 mg IVP once Route: IVP; Site: left antecubital; dd2 03:15 Follow up: Response: No adverse reaction dd2 03:00 Not Given (Physician Discretion): [id number] mg PO once dd2 03:29 Drug: Albumin IVPB 25 grams 100 ml IVPB once; (Note: Albumin 25% concentration) Volume: dd2 100 ml; Route: IVPB; Site: left antecubital; 03:44 Follow up: Response: No adverse reaction dd2 04:00 Follow up: IV Status: Completed infusion; IV Intake: 100ml dd2 05:07 Drug: Rocuronium IVP 100 mg IVP once Route: IVP; Site: left antecubital; dd2 05:22 Follow up: Response: No adverse reaction dd2 05:07 Drug: Etomidate IVP 20 mg IVP once Route: IVP; Site: left antecubital; dd2 05:22 Follow up: Response: No adverse reaction dd2 05:35 Drug: Propofol IV 5 mcg/kg/min IV at calculated rate See Administration Instructions; dd2 Standard concentration 1000 mg / 100 mL; Recommended max rate 50 mcg/kg/min; Titrate 5 mcg/kg/min every 5 minutes to achieve goal (see titration policy); Goal parameter RASS score 0 to -2 Route: IV; Rate: calculated rate; Site: left antecubital; 05:50 Follow up: Response: No adverse reaction dd2 07:13 Follow up: IV Status: Infusion continued upon transfer dd2 06:48 Drug: Furosemide IVP 40 mg IVP once; give over 2 minutes Route: IVP; Site: right dd2 jugular; Medication: 02:30 VIS not applicable for this client. dd2 Intake: 04/02 22:58 IV: 100ml; Total: 100ml. dd2 23:58 IV: 3540ml; Total: 3640ml. dd2 04/03 01:39 IV: 500ml; Total: 4140ml. dd2 03:29 IV: 100ml; Total: 4240ml. dd2 04:00 IV: 100ml; Total: 4340ml. dd2 Outcome: 02:19 Decision to Hospitalize by Provider. sp4 03:49 ER care complete, transfer ordered by MD. sp4 07:13 Transferred by ground EMS to [facility] form completed. dd2 07:13 critical 07:13 Instructed on the need for transfer, Demonstrated understanding of instructions, 07:14 Patient left the ED. dd2 Addendum: 04/06/2024 07:17 Addendum: Culture Results: Positive urine culture. Positive blood culture. faxed e b culture report to Queta Ellison at [facility]\T\[phone]. Signatures: Dispatcher [employer] EDMS Yamileth Louis Jennifer jj6 Villegas, Rebecca rv1 Mehul Desai MD MD sp4 Alfred, Rachel, RN RN cm10 Cornel Aguilar RN RN bm8 MISSY MEYER RN RN dd2 Corrections: (The following items were deleted from the chart) 04/03 00:25 04/02 21:10 GI: No deficits noted. No signs and/or symptoms were reported involving the dd2 gastrointestinal system. Abdomen is non-distended, obese, Bowel sounds present X 4 quads. Abd is soft and non tender X 4 quads. dd2 04/03 03:54 04/02 22:30 BP 103 / 57; Pulse 129bpm; Resp 22bpm; Pulse Ox 100% CPAP; dd2 dd2 04/03 03:54 04/02 23:28 BP 121 / 65; Pulse 127bpm; Resp 20bpm; Pulse Ox 100% CPAP; dd2 dd2 04/03 03:54 00:09 BP 159 / 76; Pulse 126bpm; Resp 20bpm; Pulse Ox 91% 4 lpm Nasal Cannula; Temp dd2 98.5F Temporal; dd2 03:54 00:30 BP 149 / 75; Pulse 128bpm; Resp 21bpm; Pulse Ox 91% 4 lpm Nasal Cannula; dd2 dd2 03:54 02:00 BP 139 / 63; Pulse 126bpm; Resp 20bpm; Pulse Ox 96% 4 lpm Nasal Cannula; dd2 dd2 05:20 04:[address] Johnson to [facility] ICU 2112. Report # [id number] rv1 05:04/02 21:10 General: Appears uncomfortable, Behavior is calm, cooperative, appropriate dd2 for age, Smells of URINE. dd2 04/03 05:04/02 21:10 Neuro: Level of Consciousness is alert, obeys commands, Oriented to person, dd2 place, time, situation, Appropriate for age dd2 04/03 05:04/02 21:10 Respiratory: Reports shortness of breath at rest on exertion cough that is dd2 non-productive, persistent Airway is patent Respiratory effort is even, unlabored, Respiratory pattern is regular, tachypnea Breath sounds with rhonchi bilaterally. Onset: The symptoms/episode began/occurred at an unknown time. the patient has mild shortness of breath dd2
--- NOTE | 2024-04-03 02:20 | EDPHYS ---
Physician Documentation [facility] Name: Oh Young Age: 68 yrs Sex: Female : 1955 Arrival Date: 04/02/2024 Time: 20:43 Bed 8 Private MD: ED Physician Mehul Desai HPI: 04/02 20:47 This 68 yrs old Female presents to ER via Unassigned with complaints of sp4 Shortness Of Breath, Fever, General Weakness. 04/03 00:44 Patient presents with EMS for 2 days of generalized weakness fever and inability to get sp4 up from the chair at home. EMS states patient was sitting at home in the chair for the past 2 days getting progressively weaker. EMS reports patient was febrile with a temperature 101.3. Patient is ill-appearing tachycardic on arrival. She is however responding and following commands. 04:39 68-year-old female with history of myasthenia gravis and depressive disorder, history sp4 of Raynaud's syndrome, medications include atorvastatin 20 mg daily, amlodipine 10 mg daily, famotidine 20 mg twice daily, prednisone 80 mg daily, duloxetine 60 mg twice daily, Synthroid 137 mcg daily, pyridostigmine 60 mg 3 times daily.. Historical: - Allergies: 04/02 21:10 Zoloft; dd2 - PMHx: 21:10 depressive disorder; raynaud's; dd2 - PSHx: 21:10 Thyroidectomy; dd2 - Immunization history:: Adult Immunizations unknown. - Infectious Disease History:: Denies. - Social history:: Smoking status: Patient denies any tobacco usage or history of. - Family history:: not pertinent. ROS: 04/03 04:39 Constitutional: Positive for fever, positive generalized weakness, positive confusion sp4 All other systems are negative, Exam: 04:39 Constitutional: Frail female, overweight, moderate dyspnea, moderate respiratory sp4 distress, generalized weakness, ill-appearing, normotensive but tachycardic Head/Face: Normocephalic, atraumatic. Eyes: Pupils equal round and reactive to light, extra-ocular motions intact. Lids and lashes normal. Conjunctiva and sclera are not injected. Cornea within normal limits. Periorbital areas with no swelling, redness, or edema. ENT: Nares patent. No nasal discharge, no septal abnormalities noted. Tympanic membranes are normal and external auditory canals are clear. Oropharynx with no redness, swelling, or masses, exudates, or evidence of obstruction, uvula midline. Dry mucous membranes Neck: Trachea midline, no thyromegaly or masses palpated, and no cervical lymphadenopathy. Supple, full range of motion without nuchal rigidity, or vertebral point tenderness. Chest/axilla: Normal chest wall appearance and motion. Nontender with no deformity. No lesions are appreciated. Cardiovascular: Regular tachycardia. No gallops, murmurs, or rubs. Normal PMI, no JVD. No pulse deficits. Respiratory: Lungs have equal breath sounds bilaterally, bilateral crackles, dyspnea, tachypnea, moderate respiratory distress. Abdomen/GI: Soft, with normal bowel sounds. No distension or tympany. No guarding or rebound. No evidence of tenderness throughout. Back: No spinal tenderness. No costovertebral tenderness. Female : Patient has prolapsed uterus with approximately half of the uterine segment being prolapsed out with work. Distorted external anatomy. Skin: Warm, dry with normal turgor. Normal color with no rashes, no lesions, and no evidence of cellulitis. MS/ Extremity: Pulses equal, no cyanosis. Neurovascular intact. Full, normal range of motion. Neuro: Awake and alert, GCS 13, oriented to person, Vital Signs: 04/02 21:02 BP 135 / 56; Pulse 120; Resp 34; Temp 99.4(O); Pulse Ox 97% on R/A; Weight 118 kg; dd2 22:14 BP 124 / 73; Pulse 128; Resp 31; Pulse Ox 99% on 5 lpm NC; dd2 22:30 BP 103 / 57; Pulse 129; Resp 26; Pulse Ox 100% on CPAP; dd2 23:28 BP 121 / 65; Pulse 127; Resp 23; Pulse Ox 100% on CPAP; dd2 04/03 00:09 BP 159 / 76; Pulse 126; Resp 24; Temp 98.5(TE); Pulse Ox 91% on 4 lpm NC; dd2 00:30 BP 149 / 75; Pulse 128; Resp 23; Pulse Ox 91% on 4 lpm NC; dd2 01:00 BP 131 / 65; Pulse 117; Resp 20; Pulse Ox 95% on 4 lpm NC; dd2 01:30 BP 147 / 82; Pulse 123; Resp 22; Pulse Ox 94% on 4 lpm NC; dd2 02:00 BP 139 / 63; Pulse 126; Resp 22; Pulse Ox 96% on 4 lpm NC; dd2 02:40 BP 136 / 69; Pulse 117; Resp 21; Temp 100.4(O); Pulse Ox 93% on 4 lpm NC; dd2 03:00 BP 132 / 62; Pulse 115; Resp 23; Temp 99.7(O); Pulse Ox 92% on 4 lpm NC; dd2 03:30 BP 123 / 56; Pulse 109; Resp 22; Pulse Ox 93% on 4 lpm NC; dd2 04:00 BP 139 / 70; Pulse 106; Resp 24; Temp 99.2(O); Pulse Ox 97% on CPAP; dd2 04:30 BP 149 / 70; Pulse 102; Resp 24; Pulse Ox 97% on CPAP; dd2 05:00 BP 144 / 81; Pulse 107; Resp 24; Pulse Ox 96% on CPAP; dd2 05:30 BP 146 / 75; Pulse 117; Resp 16 A; Pulse Ox 95% on ETT vent; FiO2 50 %; dd2 06:00 BP 174 / 93; Pulse 117; Resp 16 A; Pulse Ox 95% on ETT vent; FiO2 50 %; dd2 06:30 BP 112 / 62; Pulse 105; Resp 16 A; Pulse Ox 95% on ETT vent; FiO2 50 %; dd2 [place] Coma Score: 04:39 Eye Response: to voice(3). Motor Response: obeys commands(6). Verbal Response: sp4 confused(4). Total: 13. Procedures: 05:42 Intubation: Ventilated with 100% NRB prior to procedure. O2 saturation prior to sp4 procedure was 96 %. Intubated Cowden scope assisted intubation using S3 with 8.0 mm ETT. was successful on first attempt. Ventilated with Ambu bag. ventilator. Tube secured with ETT lawson at center of mouth measured 27 cm at lip. Placement verified by CXR, CO2 detector with (+) color change, auscultating bilateral breath sounds, O2 saturation after procedure was 97 %. Patient tolerated well, Patient was intubated for airway protection prior to transfer.. Central Line: the site was prepped with Betadine, in sterile fashion, a triple lumen catheter was inserted, in the right internal jugular vein, in 1 attempts. placement was verified, by CXR, by blood return, Ultrasound-guided central line, the site was dressed with 4X4s, Tegaderm, using sterile technique, the patient tolerated the procedure, well, Patient was intubated for airway protection central line was placed for severe sepsis for full resuscitation. MDM: 04/02 21:27 Medical Screening Exam initiated sp4 04/03 00:39 ED course: EXAMINATION: CT HEAD WITHOUT CONTRAST CLINICAL INDICATION: Female, 68 years sp4 old.dizzy TECHNIQUE: Axial CT images from the skull base to the vertex without intravenous contrast. Coronal and sagittal reformatted images were created from the data set. One or more of the following dose reduction techniques were used: Automated exposure control, adjustment of the mA and/or kV according to patient size, and/or iterative reconstruction. Unless otherwise specified, incidental findings do not require dedicated imaging follow-up. [id number]. COMPARISON: 07/06/2010 FINDINGS: INTRACRANIAL: No acute intracranial hemorrhage. No hydrocephalus. No mass effect or midline shift. Mild chronic small vessel ischemic changes.Age advanced cerebral atrophy. VASCULATURE: No visualized abnormalities in the arteries or dural venous sinuses. SCALP/SKULL: No significant soft tissue or osseous abnormalities. SINUSES: The visualized paranasal sinuses and mastoid air cells are predominantly clear. IMPRESSION: No acute intracranial abnormality. . ED course: EXAM: CT CHEST, ABDOMEN AND PELVIS WITHOUT CONTRAST CLINICAL INDICATION: Female, 68 years old pneumonia TECHNIQUE: CT chest, abdomen and pelvis was performed, without IV contrast, as per department protocol. Axial, sagittal and coronal reconstructions were obtained. One or more of the following dose reduction techniques were used: Automated exposure control, adjustment of the mA and/or kV according to the patient size, and/or iterative reconstruction. Unless otherwise specified, incidental findings do not require dedicated imaging follow-up. [id number]. COMPARISON: 02/12/[address] FINDINGS: The lack of intravenous contrast limits the sensitivity of this exam for evaluation of solid visceral organs, vascular structures, and retroperitoneum. Chest: LOWER NECK: No thyroid visualized, either atrophic or absent. LUNGS AND AIRWAYS: Limited by motion.No consolidative airspace disease. Likely some dependent atelectasis. Mild edema difficult to exclude. PLEURA: Small bilateral pleural effusions. MEDIASTINUM AND LYMPH NODES: No mediastinal mass or fluid collection. Normal size mediastinal, hilar, and axillary lymph nodes. THORACIC AORTA: No thoracic aortic aneurysm. PULMONARYARTERIES: Enlarged main pulmonary arteries could indicate pulmonary artery hypertension. HEART: Mild cardiomegaly. Mitral annular calcifications.Trace pericardial effusion. Abdomen/Pelvis UPPER GI: No significant abnormality. LIVER: No significant focal abnormality. GALLBLADDER/BILE DUCTS: No biliary ductal dilatation.? PANCREAS: No mass, ductal dilation, or laly-pancreatic fluid. SPLEEN: Unremarkable. ADRENALS: No adrenal masses. KIDNEYS AND URETERS: No hydronephrosis.No renal or ureteral calculi.Contour bulge along the interpolar aspect of the right kidney could represent a renal lesion though not well assessed without IV contrast. ABDOMINAL AORTA AND OTHER VESSELS: Mild atherosclerotic changes. Ectatic abdominal aorta. PERITONEUM: No abnormal free fluid. No free air. LYMPH NODES: No pathologic lymphadenopathy. ABDOMINAL WALL: Ventral abdominal wall laxity SMALL BOWEL/COLON: Small bowel has normal course and caliber. No colonic wall thickening or pericolonic inflammatory changes.Normal appendix. URINARYBLADDER: Underdistended but grossly unremarkable. REPRODUCTIVE ORGANS: Uterus surgically absent. No adnexal abnormality. MUSCULOSKELETAL: Compression fractures present at T7, T9, and L4 that are favored subacute or chronic. The T7 and T9 compression fractures have up to 60% loss of height. The L4 compression fracture has less than 20% loss of height. ADDITIONAL FINDINGS: None. IMPRESSION: 1. Motion limited evaluation of the chest with small effusions and possible mild pulmonary edema. Pneumonia considered less likely. 2. Age-indeterminate T7, T9, and L4 compression fractures. Suspect subacute or chronic. 3. Possible interpolar right renal lesion which is not well assessed without contrast. Consider nonemergent renal ultrasound for further evaluation. . ED course: EXAM: Chest Single View HISTORY: CHEST PAIN COMPARISON: 06/05/2017 FINDINGS: LUNGS/PLEURA: The lungs are clear. No pleural effusions or pneumothorax. No pulmonary edema. MEDIASTINUM: Accentuated by low lung volumes and portable technique. CARDIAC: Accentuated by low lung volumes and portable technique. UPPER ABDOMEN: No significant abnormality. BONES: No acute abnormality. LINES/TUBES/OTHER: N/A IMPRESSION: Low lung volumes without definite evidence of acute cardiopulmonary disease. . . 04:43 Differential diagnosis: Anemia Anxiety Reaction asthma, Bronchitis CHF exacerbation, sp4 Chronic Obstructive Pulmonary Disease. Data reviewed:. 04/02 20:55 Order name: Blood Culture Adult (2) [facility] 04/02 20:55 Order name: CBC with Diff; Complete Time: 00:36 [facility] 04/02 20:55 Order name: CMP; Complete Time: 22:22 [facility] 04/02 20:55 Order name: Lactate w/ 2H reflex if indic.; Complete Time: 22:17 [facility] 04/02 20:55 Order name: Protime (+inr); Complete Time: 22:17 [facility] 04/02 20:55 Order name: Ptt, Activated; Complete Time: 22:17 [facility] 04/02 20:55 Order name: Urinalysis w/ reflexes; Complete Time: 01:19 [facility] 04/02 20:55 Order name: ABG; Complete Time: 23:15 [facility] 04/02 20:56 Order name: Troponin High Sensitivity; Complete Time: 22:22 [facility] 04/02 20:56 Order name: BNP; Complete Time: 22:22 [facility] 04/02 20:56 Order name: Influenza Screen (a \T\ B); Complete Time: 23:58 [facility] 04/02 20:56 Order name: SARS RAPID; Complete Time: 22:17 [facility] 04/02 20:56 Order name: TSH; Complete Time: 22:22 [facility] 04/02 20:56 Order name: T4 Free; Complete Time: 22:22 [facility] 04/02 22:17 Order name: Ghost Lactate-NO COLLECT Timer; Complete Time: 00:36 [facility] 04/02 22:24 Order name: Manual Differential; Complete Time: 00:36 EDMS 04/03 00:05 Order name: ABG; Complete Time: 01:19 4 04/03 00:55 Order name: Urine Culture EDHI 04/03 01:19 Order name: CK; Complete Time: 03:57 4 04/03 01:19 Order name: Troponin High Sensitivity; Complete Time: 03:57 4 04/03 02:29 Order name: Lactate Sepsis 2 HR Follow-up; Complete Time: 03:57 EDHI 04/03 04:43 Order name: ABG; Complete Time: 05:55 4 04/02 20:55 Order name: Chest Single View XRAY; Complete Time: 22:17 4 04/02 20:55 Order name: CT Head Brain wo Cont; Complete Time: 23:15 sp4 04/02 20:56 Order name: CT Chest Abdomen Pelvis W/O Contrast; Complete Time: 23:15 4 04/03 06:19 Order name: Chest Single View [facility] 04/03 02:15 Order name: CONS Physician Consult [facility] 04/02 20:55 Order name: Accucheck; Complete Time: 21:49 sp4 04/02 20:55 Order name: Cardiac monitoring; Complete Time: 21:49 [facility] 04/02 20:55 Order name: Cath; Complete Time: 00:51 4 04/02 20:55 Order name: EKG - Nurse/Tech; Complete Time: 21:50 [facility] 04/02 20:55 Order name: IV Saline Lock - Large Bore; Complete Time: 21:50 [facility] 04/02 20:55 Order name: Labs collected and sent; Complete Time: 21:50 [facility] 04/02 20:55 Order name: O2 Per Protocol; Complete Time: 21:50 [facility] 04/02 20:55 Order name: O2 Sat Monitoring; Complete Time: 21:50 [facility] 04/02 20:55 Order name: Vital Signs; Complete Time: 21:50 [facility] 04/02 20:56 Order name: PO challenge; Complete Time: 03:06 4 04/03 04:53 Order name: Central Line Dressing Kit [facility] 04/03 04:53 Order name: Central Line Kit 4 04/03 04:53 Order name: Chlorhexidine prep 4 04/03 04:53 Order name: Consent for central line completed 04/03 04:53 Order name: Line Caps x3 4 04/03 04:53 Order name: NS Flushes x3 04/03 04:53 Order name: Sterile Gloves 4 04/03 04:53 Order name: Sterile Probe Cover 4 04/03 04:53 Order name: Intubation Setup 4 04/03 05:18 Order name: Nasogastric Tube; Complete Time: 06:46 sp4 Administered Medications: 04/02 22:27 Drug: Ondansetron IVP 4 mg IVP once; over 2 minutes Route: IVP; Site: left antecubital; dd2 22:42 Follow up: Response: No adverse reaction dd2 22:28 Drug: Acetaminophen PO 1000 mg PO once Route: PO; dd2 22:58 Follow up: Response: No adverse reaction dd2 22:28 Drug: NS 0.9% IV (30 ml/kg) 30 ml/kg IV at bolus once; Sepsis Protocol; to be given as dd2 a bolus over 90 minutes Route: IV; Rate: bolus; Site: left antecubital; 23:58 Follow up: IV Status: Completed infusion; IV Intake: 3540ml dd2 22:28 Drug: Cefepime IVPB 2 grams IVPB at 200 ml/hr once over 30 mins; (mix in NS 100 mL) dd2 Route: IVPB; Rate: 200 ml/hr; Infused Over: 30 mins; Site: left antecubital; :58 Follow up: Response: No adverse reaction; IV Status: Completed infusion; IV Intake: dd2 100ml 23:38 Drug: vancoMYCIN IVPB 2 grams IVPB at calculated rate once Route: IVPB; Rate: dd2 calculated rate; Site: left antecubital; 23:53 Follow up: Response: No adverse reaction dd2 04/03 01:39 Follow up: IV Status: Completed infusion; IV Intake: 500ml dd2 00:40 Drug: morphine IVP or IV 4 mg IVP once over 4 mins Route: IVP; Infused Over: 4 mins; dd2 Site: left antecubital; 00:55 Follow up: Response: No adverse reaction dd2 00:40 Drug: metoCLOPramide IVP 10 mg IVP once; over 1 to 2 minutes Route: IVP; Site: left dd2 antecubital; 00:55 Follow up: Response: No adverse reaction dd2 02:59 Drug: Acetaminophen MD Suppository 650 mg MD once Route: MD; dd2 03:29 Follow up: Response: No adverse reaction dd2 03:00 Drug: Albumin IVPB 25 grams 100 ml IVPB once; (Note: Albumin 25% concentration) Volume: dd2 100 ml; Route: IVPB; Site: left antecubital; 03:15 Follow up: Response: No adverse reaction dd2 03:29 Follow up: Response: No adverse reaction; IV Status: Completed infusion; IV Intake: dd2 100ml 03:00 Drug: Solu-CORTEF IVP 100 mg IVP once Route: IVP; Site: left antecubital; dd2 03:15 Follow up: Response: No adverse reaction dd2 03:00 Not Given (Physician Discretion): [id number] mg PO once dd2 03:29 Drug: Albumin IVPB 25 grams 100 ml IVPB once; (Note: Albumin 25% concentration) Volume: dd2 100 ml; Route: IVPB; Site: left antecubital; 03:44 Follow up: Response: No adverse reaction dd2 04:00 Follow up: IV Status: Completed infusion; IV Intake: 100ml dd2 05:07 Drug: Rocuronium IVP 100 mg IVP once Route: IVP; Site: left antecubital; dd2 05:22 Follow up: Response: No adverse reaction dd2 05:07 Drug: Etomidate IVP 20 mg IVP once Route: IVP; Site: left antecubital; dd2 05:22 Follow up: Response: No adverse reaction dd2 05:35 Drug: Propofol IV 5 mcg/kg/min IV at calculated rate See Administration Instructions; dd2 Standard concentration 1000 mg / 100 mL; Recommended max rate 50 mcg/kg/min; Titrate 5 mcg/kg/min every 5 minutes to achieve goal (see titration policy); Goal parameter RASS score 0 to -2 Route: IV; Rate: calculated rate; Site: left antecubital; 05:50 Follow up: Response: No adverse reaction dd2 07:13 Follow up: IV Status: Infusion continued upon transfer dd2 06:48 Drug: Furosemide IVP 40 mg IVP once; give over 2 minutes Route: IVP; Site: right dd2 jugular; Disposition: 04:43 Critical Care:. sp4 Disposition Summary: 04/03/24 03:49 Transfer Ordered Notes: Transfer Location: [facility] sp4 Reason: Higher level of care sp4 Condition: Serious(04/03/24 03:49) sp4 Problem: new(04/03/24 03:49) sp4 Symptoms: have improved(04/03/24 03:49) sp4 Accepting Physician: [facility] Attending [facility] (04/03/24 07:14) dd2 Diagnosis - Severe sepsis without septic shock(04/03/24 03:49) sp4 - Pyelonephritis acute(04/03/24 03:49) sp4 - Acute respiratory failure with hypoxia sp4 - NSTEMI , Acute Encephalopathy, Acute Hypoactive Delirium sp4 Forms: - Medication Reconciliation Form sp4 - SBAR form sp4 Critical care time excluding procedures: 04:43 Critical care time: Bedside Care: 46 minutes, Consultation: 12 minutes, Family sp4 Intervention: 12 minutes. Total time: 70 minutes Signatures: Dispatcher [employer] EDMS Melvina Prater, RN RN vc1 Kari Johnson rv1 Mehul Desai MD MD sp4 MISSY MEYER RN RN dd2 Corrections: (The following items were deleted from the chart) 04/02 20:56 20:56 Chest Abdomen Pelvis Wo Con+CT.RAD.BRZ ordered. EDMS EDMS 20:56 20:56 Troponin High Sensitivity+C.LAB.BRZ ordered. EDMS EDMS 20:56 20:56 PROBNP+C.LAB.BRZ ordered. EDMS EDMS 20:56 20:56 Influenza Screen (A \T\ B)+BA.LAB.BRZ ordered. EDMS EDMS 20:56 20:56 SARS-COV-2 Antigen Rapid+I.LAB.BRZ ordered. EDMS EDMS 20:57 20:57 THYROID STIMULAT HORMONE+C.LAB.BRZ ordered. EDMS EDMS 20:57 20:57 T4 FREE+C.LAB.BRZ ordered. EDMS EDMS 04/03 01:20 01:19 CREATINE PHOSPHOKINASE+C.LAB.BRZ ordered. EDMS EDMS 01:20 01:19 Troponin High Sensitivity+C.LAB.BRZ ordered. EDMS EDMS 02:25 02:19 sp4 rv1 02:28 02:25 409 rv1 vc1 03:48 02:19 Inpatient Admission sp4 sp4 03:48 02:19 Luigi Lester sp4 sp4 03:48 02:19 Telemetry/MedSurg (Inpatient) sp4 sp4 03:48 02:19 Fair sp4 sp4 03:48 02:19 new sp4 sp4 03:48 02:19 have improved sp4 sp4 03:48 02:19 Standard sp4 sp4 03:48 02:19 Pyelonephritis acute sp4 sp4 03:48 02:19 Severe sepsis without septic shock sp4 sp4 03:48 02:19 Encephalopathy, unspecified sp4 sp4 03:48 02:19 Acute Toxic Encephalopathy , NSTEMI sp4 sp4 03:48 02:28 430 vc1 sp4 05:45 03:49 [facility] ICU Attending sp4 sp4 06:19 05:18 Abdomen 1 View (KUB)+RAD.RAD.BRZ ordered. EDMS EDMS 07:14 05:45 [facility] ICU Attending [facility] sp4 dd2
[2024-04-03] MEDS ORDERED: HYDROCORTISONE SUC 100 MG INJ ONE (02:37)
[2024-04-03] MEDS ORDERED: ALBUMIN HUMAN 25% 200 ML IV ONE (02:37)
[2024-04-03] MEDS ORDERED: ACETAMINOPHEN 500 MG TAB ONE (02:37)
[2024-04-03] MEDS ORDERED: ACETAMINOPHEN 650MG/RECT SUPP PR ONE (02:52)
[2024-04-03 03:07] LABS: Troponin High Sensitivity 97.9 pg/mL (<58.9)
[2024-04-03] MEDS ORDERED: ETOMIDATE 20 MG/10 ML VIAL IV ONE (04:57)
[2024-04-03] MEDS ORDERED: ROCURONIUM 50 MG/5 ML VIAL IV ONE (04:58)
[2024-04-03] MEDS ORDERED: propofoL 1,000 MG/100 ML VIAL IV ONE ×2 (05:27→07:19)
[2024-04-03 05:51] LABS: Arterial Blood Carboxyhemoglob 1.3 % (0-1.5); Blood Gas Oxyhemoglobin 94.1 % (94-97); Blood Gas THB 7.9 g/dl (12-18); Blood O2 Saturation 97.4 % (92-98.5)
[2024-04-03] MEDS ORDERED: FUROSEMIDE 40 MG/4 ML VIAL ONE (06:48)
--- NOTE | 2024-04-03 06:48 | RAD REPORT ---
EXAMINATION: Chest Single View CLINICAL HISTORY: CENTRAL LINE , NG tube , ETT COMPARISON: None FINDINGS: Tip of ETT terminates over the right mainstem bronchus approximately 1.6 cm distal of the bifurcation . The right IJ central line catheter tip terminates over the cavoatrial junction. The NG tube tip terminates in the fundus. Low lung volumes with vascular crowding. There is bibasilar atelectasis or infiltrate left greater than right. No significant pleural effusion. The heart is mildly enlarged. The aorta is tortuous. IMPRESSION: 1. Intubation and NG tube placement. Recommend retraction of the ETT. 2. Hypoaeration with bibasilar atelectasis or infiltrate. RECOMMENDATIONS: Electronically signed by: Eric Elizalde MD 04/03/2024 06:44 AM [facility] Due to temporary technical issues with the PACS/[employer] reporting system, reports are being tomasa d by the in-house radiologist without review as a courtesy to ensure prompt reporting the interpreting radiologist is fully responsible for the content of the report. Transcribed Date/Time: 04/03/2024 6:48 AM
--- NOTE | 2024-04-03 11:44 | EKG ---
Test Date: 2024-04-02 Test Time: 21:12:30 [employer] Deputy Director: ANGELO MEASUREMENT RESULTS: Intervals: Rate: 125 MN: 128 QRSD: 80 QT: 294 QTc: 424 Anderson: P: 50 MN: 128 QRS: 9 T: 80 INTERPRETIVE STATEMENTS: Sinus tachycardia Otherwise normal ECG Compared to ECG 06/05/2017 13:47:24 Ventricular premature complex(es) no longer present Electronically Signed On 04-03-24 11:43:39 [employer]ONEY LIQUEFIER by Lewis Alcala
[2024-04-04 02:45] VITALS: BP 112/62; TEMP 99.2; O2SAT 95
== END 2024-04-03 07:14 | disposition short-term general hospital (02) ==
LOC: ER 20:43 → ERHOLD 04-03 02:11 → UNDOADMIN 04-03 02:11 → 4TH 04-03 03:14 → ERHOLD 04-03 03:14 → ER 04-03 07:14
DX: I21.4 Non-ST elevation (NSTEMI) myocardial infarction (principal); R65.20 Severe sepsis without septic shock; N10 Acute pyelonephritis; J96.01 Acute respiratory failure with hypoxia; G93.40 Encephalopathy, unspecified; F05 Delirium due to known physiological condition; I73.00 Raynaud's syndrome without gangrene; G70.00 Myasthenia gravis without (acute) exacerbation; Z11.52 Encounter for screening for COVID-19
CPT/HCPCS: 31500; 36415; 36556; 36600; 51702; 70450; 71045; 71250; 74176; 80053; 81001; 82550; 82805; 83605; 83880; 84439; 84443; 84484; 85025; 85610; 85730; 87040; 87077; 87086; 87088; 87186; 87205; 87804; 87811; 93005; 94660; 99285; J0692; J1720; J1940; J2405; J2704; J2765; J7030; J7040; P9047